=== PATIENT | female | born 1990 ===

== ENCOUNTER 2024-02-17 10:51 | Emergency (ER) | payer SELFPAY ==
[~2024-02-17] VITALS: Ht 154.9 cm; Wt 45.7 kg
[2024-02-17 10:59] VITALS: TEMP 98.3
[2024-02-17] MEDS ORDERED: ONDA-243 PO (14:40)
[2024-02-17] MEDS ORDERED: FAMO40TA59 PO (14:40)
[2024-02-17 14:49] VITALS: BP 107/56; PULSE 84; RESP 18; O2SAT 100
== END 2024-02-17 14:51 | disposition home or self-care (01) ==
LOC: ER 10:51
DX: R10.9 Unspecified abdominal pain (principal); R11.0 Nausea; Z79.899 Other long term (current) drug therapy
CPT/HCPCS: 82948; 99283